=== PATIENT | female | born 1970 | race Caucasian/White ===

== ENCOUNTER → 2021-09-29 | Outpatient (CLI) | payer BC ==
[~2021-09-29] MED LIST: NORCO 7.5-3251 EACH PO
== END ==
LOC: EXRD 13:57
DX: R07.81 Pleurodynia (principal); R05.3 Chronic cough; E55.9 Vitamin D deficiency, unspecified
CPT/HCPCS: 71111

== ENCOUNTER 2022-04-05 13:03 | Emergency (ER) | payer SELFPAY ==
[2022-04-05 15:54] LABS: HEMOGLOBIN 12.9 gm/dl (12.3-15.3); RED BLOOD COUNT 4.38 M/UL (4.00-5.10); WHITE BLOOD COUNT 9.3 K/UL (4.5-11.0)
[2022-04-05 16:17] LABS: BUN/CREATININE RATIO 20 (0-10)
[2022-04-05] MEDS ORDERED: OMNICEF 300 MG300 MG PO (18:51)
[2022-04-05] MEDS ORDERED: BENTYL 20MG TAB20 MG PO (18:51)
== END 2022-04-05 19:10 | disposition home or self-care (01) ==
LOC: ER1 13:03
PROVIDERS: Physician Assistant
DX: N39.0 Urinary tract infection, site not specified (principal); Z90.89 Acquired absence of other organs; F17.200 Nicotine dependence, unspecified, uncomplicated
CPT/HCPCS: 80053; 81001; 83605; 83690; 84703; 85025; 87077; 87086; 87186; 99284; Q9967